=== PATIENT | male | born 1990 | race Two or more races ===

== ENCOUNTER 2020-05-20 21:22 | Emergency (ER) | payer SELFPAY ==
[~2020-05-20] VITALS: Ht 177.8 cm; Wt 86.2 kg
[2020-05-20 21:35] VITALS: BP 139/79
== END 2020-05-21 00:43 | disposition home or self-care (01) ==
LOC: EDBD 21:22 → ER 21:28
DX: S22.080A Wedge compression fracture of T11-T12 vertebra, initial encounter for closed fracture (principal); V86.59XA Driver of other special all-terrain or other off-road motor vehicle injured in nontraffic accident, initial encounter; Y93.89 Activity, other specified; Y92.89 Other specified places as the place of occurrence of the external cause; Y99.8 Other external cause status
CPT/HCPCS: 72100; 72131